=== PATIENT | male | born 1955 | race Caucasian/White ===

== ENCOUNTER 2020-09-25 11:02 | Emergency (ER) | payer MEDICARE ==
[~2020-09-25] VITALS: Ht 177.8 cm; Wt 90.3 kg
[~2020-09-25 11:02] MED LIST: ASPI81CH PO; ASPI81EC; CARI350 PO; COUMADIN; CYCL10 PO; DEXL60CA3 PO; HYDACE10B PO; HYDACE5 PO; JANTOVEN PO; Jantoven2 MG PO; MED FOR GERD; OFLO.3OTSO RIGHTEAR; OMEGA-3 FATTY ACIDS; OMEP20ER; OXYACE7.5T; RXTRAM50 PO; TOCO400; TRAM50 PO; WARF7.5 PO
[2020-09-25 12:45] LABS: BASOPHILS ABSOLUTE AUTO 0.01 K/mm3 (0.00-0.23); BASOPHILS PERCENT AUTO 0 % (0-2); EOSINOPHILS PERCENT AUTO 0 % (0-6); Hematocrit 44.3 % (37.0-53.0); Hemoglobin 15.5 g/dL (13.5-17.5); IMMATURE GRAN ABSOLUTE AUTO 0.03 K/mm3 (0.00-0.10); IMMATURE GRAN PERCENT AUTO 1 % (0-1); LYMPHOCYTES ABSOLUTE AUTO 1.03 K/mm3 (0.84-5.20); LYMPHOCYTES PERCENT AUTO 22 % (21-46); MONOCYTES ABSOLUTE AUTO 0.45 K/mm3 (0.16-1.47); MONOCYTES PERCENT AUTO 9 % (4-13); Mean Corpuscular HGB 30.6 pg (26.0-34.0); Mean Corpuscular Volume 88 fL (80-100); Mean Platelet Volume 10.9 fL (9.1-12.4); NEUTROPHILS ABSOLUTE AUTO 3.26 K/mm3 (1.96-9.15); NEUTROPHILS PERCENT AUTO 68 % (41-73); Platelet Count 80 K/mm3 (150-400); RDW Coefficient Variation 12.9 % (11.7-14.2); RDW Standard Deviation 41.4 fL (35.1-46.3); Red Blood Cell Count 5.06 M/mm3 (4.30-5.90); White Blood Cell Count 4.78 K/mm3 (4.00-11.30)
[2020-09-25] MEDS ORDERED: ROSU10TA PO (12:55)
[2020-09-25] MEDS ORDERED: PANT40 PO (12:56)
[2020-09-25 13:07] LABS: Alanine Aminotransfer (ALT/SGP 108 U/L (12-78); Albumin, Blood 3.1 g/dL (3.4-5.0); Albumin/Globulin Ratio 0.9 (0.8-1.8); Alk Phos 75 U/L (50-136); Anion Gap 5 mmol/L (6-16); Aspartate Aminotrans (AST/SGOT 118 U/L (12-37); Bilirubin, Total 0.7 mg/dL (0.1-1.0); Blood Urea Nitrogen 20 mg/dL (8-24); Bun/Creatinine Ratio 19.8 (12.0-20.0); CO2, Blood 23 mmol/L (21-32); Calcium, Blood 7.9 mg/dL (8.5-10.1); Chloride, Blood 102 mmol/L (98-108); Creatinine, Blood 1.01 mg/dL (0.60-1.20); Globulin, Blood 3.6 g/dL (2.2-4.0); Glomerular Filtration Rate >60 (60-); Glucose, Blood 95 mg/dL (70-99); Potassium, Blood 5.2 mmol/L (3.5-5.5); Sodium, Blood 130 mmol/L (136-145); Total Protein, Blood 6.7 g/dL (6.4-8.2)
== END 2020-09-25 14:20 | disposition home or self-care (01) ==
LOC: ER 11:02
PROVIDERS: Physician Assistant
DX: U07.1 COVID-19 (principal); E87.1 Hypo-osmolality and hyponatremia; R74.8 Abnormal levels of other serum enzymes; Z87.891 Personal history of nicotine dependence; Z88.5 Allergy status to narcotic agent; Z79.82 Long term (current) use of aspirin; Z79.01 Long term (current) use of anticoagulants; Z79.899 Other long term (current) drug therapy
CPT/HCPCS: 36415; 71045; 80053; 84145; 85025; 93005; 93010; 99284-25; J7030

== ENCOUNTER 2020-10-05 12:50 | Inpatient (IN) | payer MEDICARE ==
[~2020-10-05] VITALS: Ht 177.8 cm; Wt 87.6 kg
[~2020-10-05 12:50] MED LIST changes: +PANT40 PO; +ROSU10TA PO
[2020-10-05 13:36] LABS: BASOPHILS ABSOLUTE AUTO 0.03 K/mm3 (0.00-0.23); BASOPHILS PERCENT AUTO 0 % (0-2); EOSINOPHILS ABSOLUTE AUTO 0.06 K/mm3 (0.00-0.68); EOSINOPHILS PERCENT AUTO 1 % (0-6); Hemoglobin 14.5 g/dL (13.5-17.5); IMMATURE GRAN ABSOLUTE AUTO 0.06 K/mm3 (0.00-0.10); IMMATURE GRAN PERCENT AUTO 1 % (0-1); LYMPHOCYTES PERCENT AUTO 15 % (21-46); MONOCYTES ABSOLUTE AUTO 0.61 K/mm3 (0.16-1.47); MONOCYTES PERCENT AUTO 9 % (4-13); Mean Corpuscular HGB 30.5 pg (26.0-34.0); Mean Corpuscular HGB Conc 34.5 g/dL (31.5-36.5); Mean Corpuscular Volume 88 fL (80-100); Mean Platelet Volume 9.7 fL (9.1-12.4); NEUTROPHILS ABSOLUTE AUTO 5.02 K/mm3 (1.96-9.15); NEUTROPHILS PERCENT AUTO 74 % (41-73); Platelet Count 267 K/mm3 (150-400); RDW Coefficient Variation 12.4 % (11.7-14.2); RDW Standard Deviation 40.3 fL (35.1-46.3); Red Blood Cell Count 4.76 M/mm3 (4.30-5.90); White Blood Cell Count 6.78 K/mm3 (4.00-11.30)
[2020-10-05 13:48] LABS: Alanine Aminotransfer (ALT/SGP 122 U/L (12-78); Albumin/Globulin Ratio 0.8 (0.8-1.8); Alk Phos 86 U/L (50-136); Anion Gap 7 mmol/L (6-16); Aspartate Aminotrans (AST/SGOT 48 U/L (12-37); Bilirubin, Total 0.6 mg/dL (0.1-1.0); Blood Urea Nitrogen 18 mg/dL (8-24); Bun/Creatinine Ratio 18.6 (12.0-20.0); CO2, Blood 25 mmol/L (21-32); Calcium, Blood 8.3 mg/dL (8.5-10.1); Chloride, Blood 107 mmol/L (98-108); Creatinine, Blood 0.97 mg/dL (0.60-1.20); Globulin, Blood 3.8 g/dL (2.2-4.0); Glomerular Filtration Rate >60 (60-); Glucose, Blood 123 mg/dL (70-99); Magnesium, Blood 2.3 mg/dL (1.6-2.4); Potassium, Blood 4.1 mmol/L (3.5-5.5); Sodium, Blood 139 mmol/L (136-145); Total Protein, Blood 6.8 g/dL (6.4-8.2); Troponin I <0.015 ng/mL (0.000-0.040)
[2020-10-05 16:08] LABS: International Normalized Ratio 2.32; Prothrombin Time Results 23.9 Sec (9.7-11.5)
--- NOTE | 2020-10-05 22:40 | NUR ---
TRANSFER NOTE REPORT TAKEN FROM TRACY WEBSTER RN. PT ARRIVED TO THE FLOOR WITH PLEUROVAC IN PLACE. PT AMBULATED FROM THE GURNEY TO THE BED. PLEUROVAC SECURED TO THE FLOOR AND HOOKED UP TO SUCTION. PT ORIENTED TO THE FLOOR AND CALL LIGHT. CALL LIGHT WITHIN REACH. GIVEN SNACKS BY REQUEST.
--- NOTE | 2020-10-05 22:41 | NUR ---
ON PT ARRIVAL, ADMITTING ORDERS WERE CHECKED REGARDING PT'S CHEST TUBE AND SUCTION SETTINGS. NO ORDERS NOTED SO HOSPITALIST WAS CONTACTED. HOSPITALIST REFERRED THIS RN TO CONTACT THE ER PHYSICIAN WHO PLACED THE CHEST TUBE. SPOKE WITH DARIN PRAKASH, BANDER AND CELLOPHANER MACHINE, WHO SPOKE WITH ED PHYSICIAN (DR SANDEEP FAJARDO) AND WAS TOLD THAT THE ADMITTING PROVIDER SHOULD HAVE PLACED ORDERS IN THE SYSTEM. NO ORDERS PLACED. THIS RN CONSULTED WITH VALERIE GONZALEZ, ICU CHARGE REGARDING SUCTION SETTINGS - SHE WENT TO THE ROOM AND CONFIRMED THE SETTINGS WITH NO CHANGES. PT CURRENTLY ON LOW CONTINUOUS SUCTION WITH LIGHT BUBBLING IN THE CHAMBER. NO SOB OR CHEST PAIN AT THIS TIME.
--- NOTE | 2020-10-06 05:27 | NUR ---
COURT MESSENGER SUMMARY ADMITTED FOR SPONTANEOUS PNEUMO. PT IS FULL CODE. PT HAD WORSENING PAIN THROUGHOUT THE NIGHT - MEDICATED X2 FOR PAIN. BUBBLING IS CONTINUOUS IN THE THORAVENT CHAMBER. PT CURRENTLY RESTING.
[2020-10-06 05:28] LABS: BASOPHILS ABSOLUTE AUTO 0.01 K/mm3 (0.00-0.23); BASOPHILS PERCENT AUTO 0 % (0-2); EOSINOPHILS ABSOLUTE AUTO 0.05 K/mm3 (0.00-0.68); EOSINOPHILS PERCENT AUTO 1 % (0-6); Hematocrit 37.9 % (37.0-53.0); Hemoglobin 12.7 g/dL (13.5-17.5); IMMATURE GRAN ABSOLUTE AUTO 0.04 K/mm3 (0.00-0.10); IMMATURE GRAN PERCENT AUTO 1 % (0-1); LYMPHOCYTES ABSOLUTE AUTO 1.32 K/mm3 (0.84-5.20); LYMPHOCYTES PERCENT AUTO 27 % (21-46); MONOCYTES ABSOLUTE AUTO 0.54 K/mm3 (0.16-1.47); MONOCYTES PERCENT AUTO 11 % (4-13); Mean Corpuscular HGB 30.2 pg (26.0-34.0); Mean Corpuscular HGB Conc 33.5 g/dL (31.5-36.5); Mean Corpuscular Volume 90 fL (80-100); Mean Platelet Volume 9.6 fL (9.1-12.4); NEUTROPHILS PERCENT AUTO 61 % (41-73); Platelet Count 194 K/mm3 (150-400); RDW Coefficient Variation 12.6 % (11.7-14.2); RDW Standard Deviation 41.6 fL (35.1-46.3); White Blood Cell Count 4.96 K/mm3 (4.00-11.30)
[2020-10-06 05:41] LABS: International Normalized Ratio 2.82; Prothrombin Time Results 28.7 Sec (9.7-11.5)
[2020-10-06 05:54] LABS: Anion Gap 5 mmol/L (6-16); Blood Urea Nitrogen 17 mg/dL (8-24); CO2, Blood 28 mmol/L (21-32); Calcium, Blood 8.2 mg/dL (8.5-10.1); Chloride, Blood 107 mmol/L (98-108); Glomerular Filtration Rate >60 (60-); Glucose, Blood 96 mg/dL (70-99); Magnesium, Blood 2.3 mg/dL (1.6-2.4); Potassium, Blood 4.1 mmol/L (3.5-5.5); Sodium, Blood 140 mmol/L (136-145)
--- NOTE | 2020-10-06 06:23 | NUR ---
PT ASLEEP AT THIS TIME. PAIN APPEARS TO BE MANAGED. CHEST TUBE MANAGED AT LOW CONTINUOUS SUCTION. MORNING MEDICATIONS DEFERRED TO DAY SHIFT AT THIS TIME TO PROMOTE REST.
--- NOTE | 2020-10-06 18:39 | NUR ---
Pt had bm and stated that he has pain around the chest tube. lungs sounds were auscultated and heard on the left side. the patient is not in any respiratory distress. patient educated to inform taff of trouble breathing, increased pain or change in location of pain. patient gave verbal understanding.
--- NOTE | 2020-10-06 19:01 | NUR ---
Shift Summary, The patient is A/OX4 to person place time and event. He has been cooperative and pleasent to work with. He was taken off of wall suction this afternoon and he has not complained of any trouble breathing. He was constipated and requested medication to help with a bm he was given miralax and had a bm this pm. He stated that after his bm he had discomfert in his chest. Lung sounds were auscultated and heard and he did not have any SOB or respiratory distress. There was no discharge in the patient's plurivac or in pluravent. The patient is curently resting in bed talking on the phone.
[2020-10-07 05:58] LABS: Hematocrit 40.7 % (37.0-53.0); Hemoglobin 13.8 g/dL (13.5-17.5); Mean Corpuscular HGB 30.3 pg (26.0-34.0); Mean Corpuscular HGB Conc 33.9 g/dL (31.5-36.5); Mean Corpuscular Volume 90 fL (80-100); Mean Platelet Volume 9.7 fL (9.1-12.4); Platelet Count 195 K/mm3 (150-400); RDW Coefficient Variation 12.6 % (11.7-14.2); RDW Standard Deviation 41.1 fL (35.1-46.3); Red Blood Cell Count 4.55 M/mm3 (4.30-5.90); White Blood Cell Count 6.67 K/mm3 (4.00-11.30)
[2020-10-07 06:14] LABS: International Normalized Ratio 3.01; Prothrombin Time Results 30.5 Sec (9.7-11.5)
[2020-10-07 06:23] LABS: Alanine Aminotransfer (ALT/SGP 89 U/L (12-78); Albumin, Blood 2.9 g/dL (3.4-5.0); Albumin/Globulin Ratio 0.8 (0.8-1.8); Alk Phos 81 U/L (50-136); Anion Gap 4 mmol/L (6-16); Aspartate Aminotrans (AST/SGOT 36 U/L (12-37); Bilirubin, Total 0.7 mg/dL (0.1-1.0); Blood Urea Nitrogen 15 mg/dL (8-24); Bun/Creatinine Ratio 14.7 (12.0-20.0); CO2, Blood 28 mmol/L (21-32); Calcium, Blood 8.5 mg/dL (8.5-10.1); Chloride, Blood 106 mmol/L (98-108); Creatinine, Blood 1.02 mg/dL (0.60-1.20); Globulin, Blood 3.5 g/dL (2.2-4.0); Glomerular Filtration Rate >60 (60-); Glucose, Blood 100 mg/dL (70-99); Potassium, Blood 4.2 mmol/L (3.5-5.5); Sodium, Blood 138 mmol/L (136-145); Total Protein, Blood 6.4 g/dL (6.4-8.2)
--- NOTE | 2020-10-07 06:25 | NUR ---
SHIFT SUMMARY- PT. A&O, PLESANT AND COOPERATIVE WITH CARE. CT W/THORA VENT TO L SIDE, NOT ON SUCTION AT THIS TIME. PT. ON RA, C/O MILD SORENESS AROUND THE AREA. DENIED ANY OTHER COMPLAINTS T/O THE NIGHT, RESTED QUIETLY DURING THE NIGHT. NO APPARENT DISTRESS NOTED, VSS. CALL LIGHT WITHIN REACH AND SIDE RAILS UPX2. WILL CONT TO MONITOR.
--- NOTE | 2020-10-07 18:25 | NUR ---
Shift Summary, The patient is A/OX4 TO PERSON, PLACE, TIME AND EVENT, THE PATIENT IS APPROPRIAT AND COMPLIANT WITH CARE. HE HAS BEEN INDEPENDENT IN THE ROOM. THE PATIENT HAS NOT HAD ANY ACUTE CHANGES. WE ARE WAITING FOR A VISIT FROM THE PHLEBOTOMIST MEDICAL LAB ASSISTANT. THE PATIENT IS LYING IN BED READING.
--- NOTE | 2020-10-08 05:33 | NUR ---
SHIFT SUMMARY- NO ACUTE EVENT OVERNIGHT. CT CLAMPED T/O THE NIGHT, PT. DENIED ANY PAIN, SOB, OR DISCOMFORT. SLEPT T/O THE NIGHT, NO APPARENT DISTRESS NOTED. CALL LIGHT WITHIN REACH AND SIDE RAILS UPX2. WILL CONT TO MONITOR.
[2020-10-08 06:04] LABS: International Normalized Ratio 2.89; Prothrombin Time Results 29.4 Sec (9.7-11.5)
--- NOTE | 2020-10-08 15:36 | NUR ---
PT DISCHARGED DC INSTRUCTIONS WERE GIVEN BY LIGIA FONG AND DR. ROSAS. THE PT VERBALIZED UNDERSTANDING THE PT WAS TRANSFERED VIA WHEELCHAIR ACCOMPANIED BY THE ARABIC LINGUIST TO MEET HIS DAUGHTER AT THE FRONT
== END 2020-10-08 13:30 | disposition home or self-care (01) | DRG 201 ==
LOC: ER 12:50 → ERHOLD 15:35 → MEDS 15:35
PROVIDERS: Internal Medicine; Nurse Practitioner Acute Care; Student in an Organized Health Care Education/Training Program; ADMIT Family Medicine
PROC: 0W9930Z Drainage of Right Pleural Cavity with Drainage Device, Percutaneous Approach (ICD-10-PCS; principal; 2020-10-05)
DX: J93.83 Other pneumothorax (principal); R74.01 Elevation of levels of liver transaminase levels; M54.9 Dorsalgia, unspecified; E78.5 Hyperlipidemia, unspecified; J44.9 Chronic obstructive pulmonary disease, unspecified; Z86.16 Personal history of COVID-19; G89.29 Other chronic pain; K21.9 Gastro-esophageal reflux disease without esophagitis; Z98.890 Other specified postprocedural states; Z86.711 Personal history of pulmonary embolism; Z87.891 Personal history of nicotine dependence; Z79.01 Long term (current) use of anticoagulants; Z79.899 Other long term (current) drug therapy; Z88.8 Allergy status to other drugs, medicaments and biological substances
CPT/HCPCS: 32551; 36415; 71045; 71046; 80048; 80053; 83735; 84484; 85025; 85027; 85610; 93005; 93010; 96374-59; 99285-25; A9270; J1885